=== PATIENT | male | born 1995 | race Hispanic/Latino ===

== ENCOUNTER 2017-12-21 23:29 | Emergency (ER) | payer SELFPAY ==
[2017-12-22 01:47] LABS: BARBITURATES, UR NEGATIVE (NEGATIVE); BENZODIAZEPINES, UR NEGATIVE (NEGATIVE); OPIATES, UR NEGATIVE (NEGATIVE); PHENCYCLIDINE, UR NEGATIVE (NEGATIVE)
--- NOTE | 2017-12-22 01:51 | ED PDOC ---
HPI: Psych/Substance Abuse Time Seen by Provider: 12/21/17 23:40 Chief Complaint (Nursing): Alcohol Ingestion Chief Complaint (Provider): Alcohol Ingestion History Per: Patient, EMS History/Exam Limitations: intoxication Onset/Duration Of Symptoms: Hrs (prior to arrival) Current Symptoms Are (Timing): Still Present Modifying Factor(s): Alcohol Additional Complaint(s): Osorio Arnold is a 22 year old male with no past medical history, who was brought to the ER by EMS for evaluation of alcohol intoxication and possible drug abuse, prior to arrival. Patient is not cooperative in the ER but admits to drinking alcohol tonight. He was [place] sleeping [place] corner [place] a [address]. History is limited due to patient's intoxication and review of systems was unobtainable. PMD: none provided Past Medical History Reviewed: Historical Data, Nursing Documentation, Vital Signs, Unable To Obtain (limited) Vital Signs: Last Vital Signs Temp 98.6 F 12/21/17 23:34 Pulse 86 12/21/17 23:34 Resp 17 12/21/17 23:34 BP 124/87 12/21/17 23:34 Pulse Ox 97 12/21/17 23:34 - Medical History PMH: No Chronic Diseases Other PMH: patient denied any medical problems - Surgical History Surgical History: No Surg Hx Other surgeries: patient denied any surgical history - Family History Family History: States: Unknown Family Hx - Social History Current smoker - smoking cessation education provided: No Alcohol: Other (intoxicated currently) Drugs: Other (possible) - Allergies Allergies/Adverse Reactions: Allergies Allergy/AdvReac Type Severity Reaction Status Date / Time No Known Allergies Allergy Verified 12/21/17 23:42 Review of Systems ROS Statement: Except As Marked, All Systems Reviewed And Found Negative Review Of Systems: ROS cannot be obtained secondary to pt's inabilty to answer questions. (patient intoxicated and uncooperative) Physical Exam - Reviewed Nursing Documentation Reviewed: Yes Vital Signs Reviewed: Yes - Physical Exam Comments: GENERAL APPEARANCE: Patient is awake, alert, not oriented however in no acute distress. SKIN: Warm, dry; (-) cyanosis HEAD: (-) scalp swelling, (-) scalp tenderness. EYES: (+) conjunctival injection, (-) scleral icterus, (-) nystagmus. ENMT: Mucous membranes moist. Airway patent: (-) stridor. NECK:Supple, FROM (-) tenderness, (-) stiffness CHEST AND RESPIRATORY: (-) rales, (-) rhonchi, (-) wheezes; breath sounds equal. ABDOMEN: Soft, (-) distention, (-) tenderness, (-) guarding. NEURO AND PSYCH:(+) slurred speech, (+) unsteady gait, (+) odor of alcohol, (+) uncooperative. Affect: Agitated. audio visual production specialist: Intact. Pupils equal and reactive; EOMI; (-) facial asymmetry; tongue and uvula midline. - ECG O2 Sat by Pulse Oximetry: 97 (RA) Pulse Ox Interpretation: Normal Medical Decision Making Medical Decision Making: Time: 00:08 Impression: Alcohol Ingestion, Possible Drug Abuse Plan: --Alcohol Serum --Drug Screen --Glucose, POC --[place] 2:03 Patient is agitated, will not stay in his room, and is verbally aggressive to staff. Patient put on a 1-to-1. 2:33 Patient is not cooperative and is yelling profanities in the ED. Security was called multiple times to ED room to have patient return to his bed. Due to lack of cooperation, medications were ordered. --Haldol 5 mg IM --Ativan 2 mg IM 0400 Patient sleeping in ED stretcher comfortably. No acute distress. VSS. 0600 Patient sleeping in ED stretcher comfortably. No acute distress. VSS. 0630 Continuation of care per Dr Fitzpatrick pending re-evaluation and clinical sobriety. Scribe Attestation: Documented by Kezia Newton acting as a scribe for Mary Lou Solo PA-C., MD Scribe Attestation: All medical record entries made by the Scribe were at my direction and personally dictated by me. I have reviewed the chart and agree that the record accurately reflects my personal performance of the history, physical exam, medical decision making, and the department course for this patient. I have also personally directed, reviewed, and agree with the discharge instructions and disposition. Disposition - Clinical Impression Clinical Impression: Alcohol abuse with intoxication - Patient ED Disposition Is Patient to be Admitted: Transfer of Care (Dr Fitzpatrick @ 0630 pending clinical sobriety and re-evaluation) Counseled Patient/Family Regarding: Diagnosis, Need For Followup - Disposition Disposition: Transfer of Care (Dr Fitzpatrick pending clinical sobriety and re- evaluation) Disposition Time: 06:30 Condition: FAIR Instructions: Alcohol Abuse and Alcoholism (DC), Effects of Alcohol on Your Health Print Language: FAROESE - POA Present On Arrival: None Results - Lab Results Lab Results: 12/22/17 12/22/17 12/22/17 00:41 00:08 00:08 POC Glucose (mg/dL) 89 Urine Opiates Screen Negative Urine Methadone Screen Negative Ur Barbiturates Screen Negative Ur Phencyclidine Scrn Negative Ur Amphetamines Screen Negative U Benzodiazepines Scrn Negative U Oth Cocaine Metabols Negative U Cannabinoids Screen Negative Alcohol, Quantitative 328 H*
--- NOTE | 2017-12-22 07:03 | ED PDOC ---
- ECG O2 Sat by Pulse Oximetry: 97 (RA) Pulse Ox Interpretation: Normal Medical Decision Making Medical Decision Making: recd 7am pending sobriety. On rounds remains on registered nurse cardiac telemetry HR 80, SPO2 98 Time: 08:42 Patient is awake. Patient does not want to eat. time: 1005am awake, clear speech, tolerated juice, ambulating stable gait wants to be discharged. is [place], will take Uber home Disposition Counseled Patient/Family Regarding: Studies Performed, Diagnosis - Clinical Impression Clinical Impression: Alcohol abuse with intoxication - POA Present On Arrival: None - Disposition Disposition: Routine/Home Disposition Time: 10:16 Condition: FAIR Instructions: Alcohol Abuse and Alcoholism (DC), Effects of Alcohol on Your Health Print Language: LEBANESE
[2017-12-22 07:52] VITALS: RESP 19
[2017-12-22 10:29] VITALS: BP 112/76; PULSE 78; TEMP 97
[2017-12-23 13:16] VITALS: O2SAT 97
== END 2017-12-22 10:29 | disposition home or self-care (01) ==
LOC: H.ER 23:29
DX: F10.129 Alcohol abuse with intoxication, unspecified (principal); Y90.8 Blood alcohol level of 240 mg/100 ml or more
CPT/HCPCS: 82948; 96372; G0480; J1630; J2060